=== PATIENT | male | born 1955 | race Caucasian/White ===

== ENCOUNTER 2018-04-22 07:02 | Inpatient (IN) | payer BC ==
--- NOTE | 2018-04-22 07:51 | ED PDOC ---
Arrival/HPI - General Chief Complaint: Fever Time Seen by Provider: 04/22/18 07:20 Historian: Patient - History of Present Illness Narrative History of Present Illness (Text): 04/22/18 07:45 A 63 year old male, with no significant past medical history, presents to the emergency department complaining of fever and chills for 5 days. Patient reports also experiencing rhinorrhea and frequent urination with associated dysuria starting 2 days ago. Patient denies any back pain, sore throat, cough, nausea, vomiting, diarrhea, rash, hematuria, or any other complaints at this time. Also, patient denies any recent sick contacts and denies any history of kidney stones (including in family). No PMD Time/Duration: < week (5 days of fever/chills, 2 days of frequency with dysuria. ) Symptom Onset: Sudden Symptom Course: Unchanged Past Medical History - Provider Review Nursing Documentation Reviewed: Yes - Psychiatric Hx Substance Use: No Family/Social History - Physician Review Nursing Documentation Reviewed: Yes Family/Social History: No Known Family HX Smoking Status: Never Smoked Hx Alcohol Use: No Hx Substance Use: No Allergies/Home Meds Allergies/Adverse Reactions: Allergies No Known Allergies Allergy (Verified 04/22/18 07:19) Home Medications: Home Meds Medication Instructions Recorded Confirmed No Known Home Med 04/22/18 04/22/18 Review of Systems - Physician Review All systems were reviewed & negative as marked: Yes - Review of Systems Constitutional: Fevers ENT: Rhinorrhea. absent: Sore Throat Respiratory: absent: Cough Gastrointestinal: absent: Diarrhea, Nausea, Vomiting Genitourinary Male: Dysuria, Frequency. absent: Hematuria Musculoskeletal: absent: Back Pain Skin: absent: Rash Physical Exam - Physical Exam Narrative Physical Exam (Text): Gen: VS reviewed, alert, well developed, well nourished, nontoxic, mild distress. ENT: normal pharynx. Eye: EOMI, PERRL. Neck: no JVD, supple, no adenopathy. CV: regular rate, regular rhythm, no rubs, no murmur, no gallops, S1, S2, pulses equal and strong. Pulm: no distress, clear to auscultation, no wheeze, no rhonchi, breath sounds equal, no rales. Abd: soft, nontender, no guarding, no rebound, no rigidity, normal bowel sounds. Ext: no edema. Skin: good color, no rash, no cyanosis. Psych: responds appropriately to questions, normal affect. Neuro: oriented x 3, CN2-12 intact grossly, motor intact, sensation intact. Vital Signs Reviewed: Yes Vital Signs Temp Pulse Resp BP Pulse Ox 04/22/18 12:02 99 F 94 H 18 127/73 97 04/22/18 11:46 94 H 18 127/73 04/22/18 11:39 94 H 18 127/73 97 04/22/18 09:22 98 H 17 133/75 96 04/22/18 07:17 99.3 F 98 H 18 121/75 96 Temperature: Afebrile Blood Pressure: Normal Pulse: Regular Respiratory Rate: Normal Appearance: Positive for: Well-Appearing, Non-Toxic, Comfortable Pain Distress: None Mental Status: Positive for: Alert and Oriented X 3 Medical Decision Making ED Course and Treatment: 04/22/18 07:48 Impression: 63 year old male with fever/chills, rhinorrhea, and urinary frequency with associated dysuria. No acute findings on physical examination. Plan: -- Labs -- Urine Culture -- Urinalysis -- Reassess and disposition Progress Notes: 04/22/18 09:[address] Light, hospitalist, who accepts patient under admission. Patient will be admitted for UTI/pyelo. Prior to admission, CT ordered to rule out stone. Patient clinically stable for med surg bed. 04/22/2018 11:17 Abd/Pelvis CT FINDINGS: LOWER THORAX: No infiltrate. Two perifissural nodules 5 mm each adjacent to the minor fissure , possibly intrapulmonary lymph nodes. 5 mm nodule in the right middle lobe. 6 mm nodule in left lower lobe (series 5, image 24). Followup with noncontrast chest CT examination is advised 6-12 months as per Fleischner society criteria. LIVER: Unremarkable. No gross lesion or ductal dilatation. GALLBLADDER AND BILE DUCTS: Unremarkable. PANCREAS: Unremarkable. No gross lesion or ductal dilatation. SPLEEN: Unremarkable. ADRENALS: Unremarkable. No mass. KIDNEYS AND URETERS: Right lower pole renal cortical cyst, 4.1 cm, measuring 4 Hounsfield units. No other mass. No calculus or hydronephrosis. VASCULATURE: Unremarkable. No aortic aneurysm. BOWEL: Sigmoid diverticulosis. No evidence of diverticulitis. No bowel obstruction. APPENDIX: Unremarkable. Normal appendix. PERITONEUM: Right inguinal hernia containing portion of the urinary bladder, extending approximately 50 percent of the length of the right inguinal canal. No herniated bowel. LYMPH NODES: Mild retroperitoneal lymphadenopathy, up to 12 mm short axis. Nonspecific. No pelvic lymphadenopathy. BLADDER: Herniation of bladder into right inguinal canal. REPRODUCTIVE: Normal prostate BONES: No acute fracture. OTHER FINDINGS: None. IMPRESSION: No evidence of urinary calculus or urinary tract obstruction. Herniation of urinary bladder into right inguinal canal. 6 mm nodule in the left lower lobe for which followup noncontrast chest CT examination is advised in 6-12 months. Additional smaller nodules are noted for which no follow-up is required. Nonspecific mild retroperitoneal lymphadenopathy. Additional minor findings as above. Dictator: Michael Bajwa MD - Lab Interpretations Lab Results: 04/22/18 07:50 04/22/18 07:50 Lab Results 04/22/18 09:12: pO2 46, VBG pH 7.39, VBG pCO2 46.0, VBG HCO3 27.8, VBG Total CO2 29.2 H, VBG O2 Sat (Calc) 87.5 H, VBG Base Excess 2.2 H, VBG Potassium 4.1, Glucose 130 H, Lactate 1.3, FiO2 21.0, Sodium 135.0, Chloride 103.0, Venous Blood Potassium 4.1 04/22/18 07:50: Sodium 138, Potassium 4.2, Chloride 102, Carbon Dioxide 28, Anion Gap 12, BUN 21, Creatinine 1.1, Est GFR ( Amer) > 60, Est GFR (Non- Af Amer) > 60, Random Glucose 143 H, Calcium 9.2, Total Bilirubin 3.2 H, AST 26 , ALT 24, Alkaline Phosphatase 73, Total Protein 7.4, Albumin 4.2, Globulin 3.2 , Albumin/Globulin Ratio 1.3 04/22/18 07:50: Urine Color Yellow, Urine Appearance Clear, Urine pH 6.0, Ur Specific Leslie 1.020, Urine Protein Trace H, Urine Glucose (UA) Negative, Urine Ketones 15 H, Urine Blood Trace-intact H, Urine Nitrate Positive H, Urine Bilirubin Negative, Urine Urobilinogen 0.2, Ur Leukocyte Esterase Small H, Urine RBC 5 - 10, Urine WBC 10 - 15, Ur Epithelial Cells 0 - 2, Urine Bacteria Many, Urine Other Uyeast 04/22/18 07:50: WBC 23.5 H, RBC 5.03, Hgb 14.8, Hct 45.4, MCV 90.3, MCH 29.4, MCHC 32.6, RDW 14.2, Plt Count 260, MPV 10.1, Gran % 88.8 H, Lymph % (Auto) 3.1 L, Pennington % (Auto) 8.1 H, Eos % (Auto) 0.0 L, Baso % (Auto) 0.0, Gran # 20.84 H, Lymph # (Auto) 0.7 L, [place] # (Auto) 1.9 H, Eos # (Auto) 0.0, Baso # (Auto) 0.00 , Neutrophils % (Manual) 86 H, Lymphocytes % (Manual) 5 L, Atypical Lymphs % 2 H , Monocytes % (Manual) 7 H, Platelet Evaluation Normal, Anisocytosis (manual) Slight I have reviewed the lab results: Yes - RAD Interpretation Radiology Orders: 04/22/18 08:52 ABDOMEN & PELVIS [ABD & PELVIS W/O PO OR IV CONT] [CT] Stat - Medication Orders Current Medication Orders: Acetaminophen (Tylenol 325mg Tab) 650 mg PO Q6H PRN PRN Reason: Fever >100.4 F Last Admin: 04/22/18 12:42 Dose: 650 mg [facility] Pain/Vitals Document 04/22/18 12:42 ANTOALL (Rec: 04/22/18 12:42 ANTOALL [id number]) Pain Reassessment Is This A Pain ReAssessment? No Sleep Is patient sleeping during reassessment? No Presence of Pain Presence of Pain No Vitals Temperature (97.6 F-99.6 F) 100.4 F Temperature Source Oral Re-Assess: MEG Pain/Vitals Document 04/22/18 13:42 ANTOALL (Rec: 04/22/18 13:47 ANTOALL [id number]) Pain Reassessment Is This A Pain ReAssessment? Yes Sleep Is patient sleeping during reassessment? No Presence of Pain Presence of Pain No Sodium Chloride (Sodium Chloride 0.9%) 1,000 mls @ 150 mls/hr IV .Q6H40M [facility] Last Admin: 04/22/18 09:10 Dose: 150 mls/hr eMAR Start Stop Document 04/22/18 09:10 [facility] (Rec: 04/22/18 09:11 [facility] [facility] [id number] Intravenous Solution Start Date 04/22/18 Start Time 09:11 Ceftriaxone Sodium (Rocephin 1 Gram Ivpb) 1 gm in 100 mls @ 100 mls/hr IVPB DAILY ILIR PRN Reason: Protocol Discontinued Medications Ceftriaxone Sodium (Rocephin 1 Gram Ivpb) 1 gm in 100 mls @ 100 mls/hr IVPB STAT STA PRN Reason: Protocol Stop: 04/22/18 09:50 Last Admin: 04/22/18 09:11 Dose: 100 mls/hr eMAR Start Stop Document 04/22/18 09:11 [facility] (Rec: 04/22/18 09:11 [id number] Intravenous Solution Start Date 04/22/18 Start Time 09:11 End Date 04/22/18 End time 10:13 Total Infusion Time 62 - Scribe Statement The provider has reviewed the documentation as recorded by the Mekhi Little Provider Scribe Attestation: All medical record entries made by the Mekhi were at my direction and personally dictated by me. I have reviewed the chart and agree that the record accurately reflects my personal performance of the history, physical exam, medical decision making, and the department course for this patient. I have also personally directed, reviewed, and agree with the discharge instructions and disposition. Disposition/Present on Arrival - Present on Arrival Any Indicators Present on Arrival: No History of DVT/PE: No History of Uncontrolled Diabetes: No Urinary Catheter: No History of Decub. Ulcer: No History Surgical Site Infection Following: None - Disposition Have Diagnosis and Disposition been Completed?: Yes Diagnosis: Pyelonephritis Disposition: HOSPITALIZED Disposition Time: 17:16 Condition: STABLE
[2018-04-22 08:12] LABS: GRAN # 20.84 (1.4-6.5); GRAN % 88.8 % (50.0-68.0); HEMOGLOBIN 14.8 g/dL (14.0-18.0); LYMPH # 0.7 (1.2-3.4); LYMPH % 3.1 % (22.0-35.0); MEAN CELL VOLUME 90.3 fl (80.0-105.0); MEAN CORPUSCULAR HEMOGLOBIN 29.4 pg (25.0-35.0); MEAN CORPUSCULAR HGB CONC 32.6 g/dl (31.0-37.0); MEAN PLATELET VOLUME 10.1 fl (7.0-11.0); MONO # 1.9 (0.1-0.6); MONO % 8.1 % (1.0-6.0); PLATELET COUNT 260 10^3/uL (120.0-450.0); RBC 5.03 10^6/uL (3.5-6.1); RED CELL DISTRIBUTION WIDTH 14.2 % (11.5-14.5); WHITE BLOOD COUNT 23.5 10^3/ul (4.5-11.0)
[2018-04-22 08:19] LABS: ALB/GLOB RATIO 1.3 (1.1-1.8); ALBUMIN 4.2 g/dL (3.0-4.8); ALT/SGPT 24 U/L (7-56); AST/SGOT 26 U/L (17-59); BLOOD UREA NITROGEN 21 mg/dL (7-21); CALCIUM 9.2 mg/dL (8.4-10.5); GFR NON-AFRICAN AMERICAN > 60
[2018-04-22 08:39] LABS: URINE BILIRUBIN NEGATIVE (NEGATIVE); URINE BLOOD TRACE-INTACT (NEGATIVE); URINE GLUCOSE (UA) NEGATIVE (NEGATIVE); URINE LEUKOCYTE ESTERASE SMALL Leu/uL (NEGATIVE); URINE PROTEIN TRACE mg/dL (<30 mg/dL); URINE UROBILINOGEN 0.2 E.U./dL (<1 E.U./dL)
[2018-04-22 08:43] LABS: URINE APPEARANCE CLEAR (CLEAR); URINE COLOR YELLOW (YELLOW)
[2018-04-22] MEDS ORDERED: cefTRIAXone 1 gm 1 GM/100 ML BAG IVPB STA (08:51)
[2018-04-22] MEDS ORDERED: Sodium Chloride 0.9% 1,000 ML IV SCH (09:00)
[2018-04-22 09:13] LABS: URINE BACTERIA MANY (NEG); URINE EPITHELIAL CELLS 0 - 2 /hpf (0-5)
[2018-04-22 09:22] LABS: VENOUS BLOOD GAS BASE EXCESS 2.2 mmol/L (0.0-2.0); VENOUS BLOOD GAS PO2 46 mm/Hg (30-55); VENOUS BLOOD PH 7.39 (7.32-7.43)
[2018-04-22 09:27] LABS: ATYPICAL LYMPHOCYTE 2 % (0.0-0.0); LYMPHOCYTE 5 % (22.0-35.0); MONOCYTE 7 % (1.0-6.0); NEUTROPHIL 86 % (50.0-70.0); PLATELET ESTIMATE NORMAL (NORMAL)
[2018-04-22 09:28] LABS: ANISOCYTOSIS SLIGHT
--- NOTE | 2018-04-22 11:19 | CT ---
Date of service: 04/22/2018 PROCEDURE: CT Abdomen and Pelvis without intravenous contrast HISTORY: ?stone COMPARISON: None. TECHNIQUE: Without contrast.. Contrast dose: 0 Radiation dose: Total exam DLP = 470.54 mGy-cm. This CT exam was performed using one or more of the following dose reduction techniques: Automated exposure control, adjustment of the mA and/or kV according to patient size, and/or use of iterative reconstruction technique. FINDINGS: LOWER THORAX: No infiltrate. Two perifissural nodules 5 mm each adjacent to the minor fissure, possibly intrapulmonary lymph nodes. 5 mm nodule in the right middle lobe. 6 mm nodule in left lower lobe (series 5, image 24). Followup with noncontrast chest CT examination is advised 6-12 months as per Fleischner society criteria. LIVER: Unremarkable. No gross lesion or ductal dilatation. GALLBLADDER AND BILE DUCTS: Unremarkable. PANCREAS: Unremarkable. No gross lesion or ductal dilatation. SPLEEN: Unremarkable. ADRENALS: Unremarkable. No mass. KIDNEYS AND URETERS: Right lower pole renal cortical cyst, 4.1 cm, measuring 4 Hounsfield units. No other mass. No calculus or hydronephrosis. VASCULATURE: Unremarkable. No aortic aneurysm. BOWEL: Sigmoid diverticulosis. No evidence of diverticulitis. No bowel obstruction. APPENDIX: Unremarkable. Normal appendix. PERITONEUM: Right inguinal hernia containing portion of the urinary bladder, extending approximately 50 percent of the length of the right inguinal canal. No herniated bowel. LYMPH NODES: Mild retroperitoneal lymphadenopathy, up to 12 mm short axis. Nonspecific. No pelvic lymphadenopathy. BLADDER: Herniation of bladder into right inguinal canal REPRODUCTIVE: . normal prostate BONES: No acute fracture. OTHER FINDINGS: None. IMPRESSION: No evidence of urinary calculus or urinary tract obstruction. Herniation of urinary bladder into right inguinal canal. 6 mm nodule in the left lower lobe for which followup noncontrast chest CT examination is advised in 6-12 months. Additional smaller nodules are noted for which no follow-up is required. Nonspecific mild retroperitoneal lymphadenopathy. Additional minor findings as above.
[2018-04-22 11:52] VITALS: BMI 27.1
--- NOTE | 2018-04-22 12:59 | CP.PCM.HP ---
<Williams Burks - Last Filed: 04/22/18 12:53> History of Present Illness - History of Present Illness History of Present Illness: H&P for Hospitalist service - Dean Vitaliy PGY3 cc: dysuria HPI: Patient is a 63yo male with no significant past medical history that presents with c/o fevers for the past 3 days. He reported that he has been having dysuria and increased urinary frequency since Monday associated with fevers and chills that have been only minimally improved with motrin use at home. He reported a similar instance in the past approximately 1 year prior and has had a prior issue with bladder/bowel herniation into the inguinal canal. Has never seen a urologist or surgeon in the past. Denies any pain/radiation. Otherwise, he denies chest pain, palpitations, SOB, abdominal pain, nausea, vomiting, cough, sick contacts, focal weakness, numbness, tingling. 12point ROS as per above otherwise negative PMH: as stated above PSH: denies allergies: NKDA Social Hx: lives with his , works in textile industry, denies tobacco, alcohol and illicit drug use Family Hx: Father with hx of Liver Ca and Mother with hx of breast Ca PMD: Dr. Mino Wright Present on Admission - Present on Admission Any Indicators Present on Admission: No Past Patient History - Past Social History Smoking Status: Never Smoked - CARDIAC Hx Cardiac Disorders: No - PULMONARY Hx Respiratory Disorders: No - NEUROLOGICAL Hx Neurological Disorder: No - HEENT Hx HEENT Problems: No - RENAL Hx Pyelonephritis: Yes () - ENDOCRINE/METABOLIC Hx Endocrine Disorders: No - HEMATOLOGICAL/ONCOLOGICAL Hx Blood Disorders: No - INTEGUMENTARY Hx Dermatological Problems: No - MUSCULOSKELETAL/RHEUMATOLOGICAL Hx Falls: No - GENITOURINARY/GYNECOLOGICAL Hx Genitourinary Disorders: No - PSYCHIATRIC Hx Substance Use: No - SURGICAL HISTORY Hx Surgeries: No Meds Allergies/Adverse Reactions: Allergies Allergy/AdvReac Type Severity Reaction Status Date / Time No Known Allergies Allergy Verified 04/22/18 07:19 Physical Exam - Constitutional Appears: No Acute Distress - Head Exam Head Exam: ATRAUMATIC, NORMAL INSPECTION, NORMOCEPHALIC - Eye Exam Eye Exam: EOMI, PERRL - ENT Exam ENT Exam: Mucous Membranes Moist - Neck Exam Neck exam: Positive for: Normal Inspection. Negative for: Lymphadenopathy, Tenderness, Thyromegaly - Respiratory Exam Respiratory Exam: Clear to Auscultation Bilateral. absent: Rales, Rhonchi, Wheezes - Cardiovascular Exam Cardiovascular Exam: RRR, +S1, +S2. absent: Clicks, Gallop, JVD, Rubs - GI/Abdominal Exam GI & Abdominal Exam: Soft. absent: Distended, Firm, Guarding, Rebound, Tenderness - Exam Exam: NORMAL INSPECTION. absent: Scrotal Swelling, Uretheral Discharge, Bladder Distension External exam: absent: Swelling - Neurological Exam Neurological exam: Alert, CN II-XII Intact, Oriented x3 - Psychiatric Exam Psychiatric exam: Normal Affect, Normal Mood - Skin Skin Exam: Dry, Intact, Normal Color, Warm Results - Vital Signs Recent Vital Signs: Last Vital Signs Temp 100.4 F H 04/22/18 12:42 Pulse 94 H 04/22/18 12:02 Resp 18 04/22/18 12:02 BP 127/73 04/22/18 12:02 Pulse Ox 97 04/22/18 12:02 - Labs Result Diagrams: 04/22/18 07:50 04/22/18 07:50 Assessment & Plan - Assessment and Plan (Free Text) Plan: 63yo male with no significant past medical history presents with fevers/chills/ dysuria secondary to urinary tract infection 1. Urinary tract infection -Significant leukocytosis and urinalysis notable for +nitrates, +LE and many bacteria with 10-15 WBC's -EKG reviewed no acute ST-T wave abnormalities -CXR pending -CT abd/pelvis was reviewed; no apparent stones/hydronephrosis however notable for bladder herniation and incidental lung nodules -Continue with rocephin for abx coverage pending culture/sensitivities -Tylenol PRN for fevers -blood/urine cultures pending -procalcitonin is pending -ID Consulted - Dr. Addison -Urology consulted - Dr. De La Cruz 2. DVT Prophylaxis -SCD's Patient seen and case discussed/reviewed with attending, Dr. Light <Mara Light - Last Filed: 04/22/18 18:18> Results - Vital Signs Recent Vital Signs: Last Vital Signs Temp 100.4 F H 04/22/18 12:42 Pulse 94 H 04/22/18 12:02 Resp 18 04/22/18 12:02 BP 127/73 04/22/18 12:02 Pulse Ox 97 04/22/18 12:02 - Labs Result Diagrams: 04/22/18 07:50 04/22/18 07:50 Attending/Attestation - Attestation I have personally seen and examined this patient.: Yes I have fully participated in the care of the patient.: Yes I have reviewed all pertinent clinical information: Yes Notes (Text): 04/22/18 14:54 attending note; Patient seen and examined with resident in ER. patient's by the bed side. patient is alert and awake. denies any chest pain, shortness of breath. Denies any abdominal pain. Complaining of fevers and chills since Monday. Patient is a 63 year old male with no significant past medical history that presents with c/o fevers for the past 3 days. patient had a history of UTI about a year ago. Patient also complains right inguinal hernia. He is able reduce it most of the time. complicated UTI: started on IV Rocephin. Monitor for fevers and chills. CT abdomen and pelvis showed no apparent stones/hydronephrosis however notable for bladder herniation and incidental lung nodules. case discussed with urologist Dr.yale De La Cruz in detail by ER attending. history of right inguinal hernia; currently no swelling. needs outpatient surgery follow up. Continue IV antibiotics and follow-up culture results. Upon discharge the patient will follow up with PMD . The diagnosis, follow-up plan discussed with patient and patient's in detail.
--- NOTE | 2018-04-22 13:13 | RAD ---
Date of service: 04/22/2018 HISTORY: fever COMPARISON: No prior. FINDINGS: LUNGS: Linear scar/atelectasis at left base. PLEURA: No significant pleural effusion identified, no pneumothorax apparent. CARDIOVASCULAR: Normal. OSSEOUS STRUCTURES: No significant abnormalities. VISUALIZED UPPER ABDOMEN: Normal. OTHER FINDINGS: None. IMPRESSION: Left basilar linear scar/atelectasis. Otherwise unremarkable examination.
--- NOTE | 2018-04-22 13:58 | CARD ---
APPROVED REPORT Date of service: 04/22/2018 EKG Measurement Heart [id number] <Conclusion> Normal sinus rhythm Left axis deviation Abnormal ECG
--- NOTE | 2018-04-22 18:25 | CP.PCM.CON ---
History of Present Illness - History of Present Illness History of Present Illness: CC: FEVER Past Patient History - Past Social History Smoking Status: Never Smoked - CARDIAC Hx Cardiac Disorders: No - PULMONARY Hx Respiratory Disorders: No - NEUROLOGICAL Hx Neurological Disorder: No - HEENT Hx HEENT Problems: No - RENAL Hx Pyelonephritis: Yes () - ENDOCRINE/METABOLIC Hx Endocrine Disorders: No - HEMATOLOGICAL/ONCOLOGICAL Hx Blood Disorders: No - INTEGUMENTARY Hx Dermatological Problems: No - MUSCULOSKELETAL/RHEUMATOLOGICAL Hx Falls: No - GENITOURINARY/GYNECOLOGICAL Hx Genitourinary Disorders: No - PSYCHIATRIC Hx Substance Use: No - SURGICAL HISTORY Hx Surgeries: No Meds Allergies/Adverse Reactions: Allergies Allergy/AdvReac Type Severity Reaction Status Date / Time No Known Allergies Allergy Verified 04/22/18 07:19 - Medications Medications: Current Medications Acetaminophen (Tylenol 325mg Tab) 650 mg PO Q6H PRN PRN Reason: Fever >100.4 F Last Admin: 04/22/18 12:42 Dose: 650 mg Ceftriaxone Sodium (Rocephin 1 Gram Ivpb) 1 gm in 100 mls @ 100 mls/hr IVPB DAILY ILIR PRN Reason: Protocol Sodium Chloride (Sodium Chloride 0.9%) 1,000 mls @ 100 mls/hr IV .Q10H ILIR Ondansetron HCl (Zofran Inj) 4 mg IVP Q4H PRN PRN Reason: Nausea/Vomiting Pantoprazole Sodium (Protonix Inj) 40 mg IVP DAILY ILIR Results - Vital Signs Recent Vital Signs: Last Vital Signs Temp 98.6 F 04/22/18 15:52 Pulse 94 H 04/22/18 15:52 Resp 18 04/22/18 15:52 BP 113/75 04/22/18 15:52 Pulse Ox 99 04/22/18 15:52 - Labs Result Diagrams: 04/22/18 07:50 04/22/18 07:50 Labs: Laboratory Results - last 24 hr 04/22/18 04/22/18 11:00 14:10 Prostate Specific Ag 8.5 H Procalcitonin 0.40 Assessment & Plan - Assessment and Plan (Free Text) Assessment: IMP: UTI BPH HX OF PREVIOUS UTI FULL NOTE TBD YS - Date & Time Date: 04/22/18 Time: 16:05
[2018-04-22] MEDS: Sodium Chloride 0.9% 1,000 ML IV SCH (18:32)
[2018-04-23] MEDS: Sodium Chloride 0.9% 1,000 ML IV SCH ×2 (04:45→15:35)
[2018-04-23 07:02] LABS: BASO # 0.01 K/mm3 (0.0-2.0); BASO % 0.1 % (0.0-3.0); EOS # 0.1 (0.0-0.7); EOS % 0.5 % (1.5-5.0); GRAN # 14.18 (1.4-6.5); GRAN % 85.7 % (50.0-68.0); LYMPH # 1.2 (1.2-3.4); MEAN CELL VOLUME 90.8 fl (80.0-105.0); MEAN CORPUSCULAR HGB CONC 31.9 g/dl (31.0-37.0); MEAN PLATELET VOLUME 9.9 fl (7.0-11.0); MONO # 1.1 (0.1-0.6); MONO % 6.7 % (1.0-6.0); RBC 4.48 10^6/uL (3.5-6.1); RED CELL DISTRIBUTION WIDTH 14.4 % (11.5-14.5); WHITE BLOOD COUNT 16.5 10^3/ul (4.5-11.0)
--- NOTE | 2018-04-23 07:02 | CP.PCM.PN ---
<Bren Sharma - Last Filed: 04/23/18 18:44> Subjective - Date & Time of Evaluation Date of Evaluation: 04/23/18 Time of Evaluation: 07:30 - Subjective Subjective: PGY-1 Bren Sharma D.O. Medicine progress note for Dr. Woodard's service: Patient was seen and examined this morning. No over night events reported. Patient denies fevers or chills. He denies dysuria, hematuria, urinary frequency or hesitancy. He denies abdominal, pelvic, or flank pain. He is eating and sleeping well. Objective - Vital Signs/Intake and Output Vital Signs (last 24 hours): Temp Pulse Resp BP Pulse Ox 98.3 F 77 16 112/74 97 04/23/18 02:07 04/22/18 21:23 04/22/18 21:23 04/22/18 21:23 04/22/18 21:23 Intake and Output: 04/23/18 04/23/18 06:59 18:59 Intake Total 480 Balance 480 - Medications Medications: Current Medications Acetaminophen (Tylenol 325mg Tab) 650 mg PO Q6H PRN PRN Reason: Fever >100.4 F Last Admin: 04/22/18 12:42 Dose: 650 mg Ceftriaxone Sodium (Rocephin 1 Gram Ivpb) 1 gm in 100 mls @ 100 mls/hr IVPB DAILY [facility] PRN Reason: Protocol Sodium Chloride (Sodium Chloride 0.9%) 1,000 mls @ 100 mls/hr IV .Q10H ILIR Last Admin: 04/23/18 04:45 Dose: 100 mls/hr Ondansetron HCl (Zofran Inj) 4 mg IVP Q4H PRN PRN Reason: Nausea/Vomiting Pantoprazole Sodium (Protonix Inj) 40 mg IVP DAILY [facility] Tamsulosin HCl (Flomax) 0.4 mg PO DAILY [facility] - Constitutional Appears: Non-toxic, No Acute Distress - Head Exam Head Exam: ATRAUMATIC, NORMAL INSPECTION - Eye Exam Eye Exam: EOMI, Normal appearance - ENT Exam ENT Exam: Mucous Membranes Moist, Normal Exam - Neck Exam Neck Exam: Normal Inspection - Respiratory Exam Respiratory Exam: Clear to Ausculation Bilateral, NORMAL BREATHING PATTERN - Cardiovascular Exam Cardiovascular Exam: REGULAR RHYTHM, +S1, +S2 - GI/Abdominal Exam GI & Abdominal Exam: Soft, Normal Bowel Sounds. absent: Tenderness - Rectal Exam Rectal Exam: Deferred - Extremities Exam Extremities Exam: Full ROM, Normal Inspection. absent: Pedal Edema - Back Exam Back Exam: NORMAL INSPECTION. absent: CVA tenderness (L), CVA tenderness (R) - Neurological Exam Neurological Exam: Alert, Awake, CN II-XII Intact, Oriented x3 Neuro motor strength exam: Left Upper Extremity: 5, Right Upper Extremity: 5, Left Lower Extremity: 5, Right Lower Extremity: 5 - Psychiatric Exam Psychiatric exam: Normal Affect, Normal Mood - Skin Skin Exam: Dry, Intact, Normal Color, Warm Assessment and Plan - Assessment and Plan (Free Text) Assessment: 63 yo male with no significant past medical history presents with fevers/chills/dysuria secondary to urinary tract infection. Treating with IV abx. Leukocytosis improving. Plan: Urinary tract infection - Tmax 100.4 04/22 - Leukocytosis downtrending - CT A/P: no apparent stones/hydronephrosis; however notable for bladder herniation and incidental lung nodules - UA: +nitrates, +LE and many bacteria with 10-15 WBC's - Blood Cx no growh >24 hrs - Urine Cx GNR - Lactate 1.3 - Procalcitonin 0.4 - PSA 8.5 - Flomax 0.4 mg PO daily - Rocephin 1 g IV daily (started 04/22) - Tylenol 650 mg PO Q6H PRN for fevers - ID consulted (Cyn) - Urology consulted (Michael De La Cruz) Pulmonary nodules- incidentally found on CT - Will need repeat CT as outpatient in 6 months IVF: NS @ 100 Diet: heart healthy GI ppx: protonix 40 mg PO daily VTE ppx: SCD Code status: full code Case discussed with attending, Dr. Woodard. <Maria Isabel Woodard R - Last Filed: 04/24/18 17:06> Objective - Vital Signs/Intake and Output Vital Signs (last 24 hours): Temp Pulse Resp BP Pulse Ox 98.7 F 68 20 112/76 98 04/24/18 06:00 04/24/18 06:00 04/24/18 06:00 04/24/18 06:00 04/24/18 06:00 Intake and Output: 04/24/18 04/24/18 06:59 18:59 Intake Total 600 120 Balance 600 120 - Medications Medications: Current Medications Acetaminophen (Tylenol 325mg Tab) 650 mg PO Q6H PRN PRN Reason: Fever >100.4 F Last Admin: 04/22/18 12:42 Dose: 650 mg Ceftriaxone Sodium (Rocephin 1 Gram Ivpb) 1 gm in 100 mls @ 100 mls/hr IVPB DAILY [facility]; Protocol Last Admin: 04/24/18 13:51 Dose: 100 mls/hr Sodium Chloride (Sodium Chloride 0.9%) 1,000 mls @ 100 mls/hr IV .Q10H ILIR Last Admin: 04/23/18 15:35 Dose: 100 mls/hr Ondansetron HCl (Zofran Inj) 4 mg IVP Q4H PRN PRN Reason: Nausea/Vomiting Pantoprazole Sodium (Protonix Ec Tab) 40 mg PO ACB ILIR Last Admin: 04/24/18 13:51 Dose: 40 mg Tamsulosin HCl (Flomax) 0.4 mg PO DAILY [facility] Last Admin: 04/24/18 13:51 Dose: 0.4 mg - Labs Labs: 04/24/18 06:20 04/24/18 06:20 Attending/Attestation - Attestation I have personally seen and examined this patient.: Yes I have fully participated in the care of the patient.: Yes I have reviewed all pertinent clinical information, including history, physical exam and plan: Yes Notes (Text): Patient seen and examined by me at 12:10 PM with resident 04/23/18. Case including HPI, physical exam, and assessment and plan discussed with resident. Agree with above with following additions/corrections. Patient is a 63-year-old male with no significant past medical history that presented to the emergency room with fever and dysuria. Patient states he is feeling pretty good. He denies any dysuria or burning with urination. Patient denies any urinary frequency. No chest pain or shortness of breath. No headaches or dizziness. No fevers or chills. No diarrhea or constipation. No nausea, vomiting, or abdominal pain. Physical exam: General: Awake and alert lying in bed in no acute distress HEENT: Normocephalic atraumatic. Pupils equal reactive. No scleral icterus. Oropharynx is pink and moist. Neck is supple. Cardiovascular: Normal rhythm. Normal S1, S2. No murmurs, rubs, or gallops appreciated Pulmonary: Normal respiratory effort. No rhonchi, rales or wheezing appreciated. Gastrointestinal: Soft, nondistended. Nontender. Positive bowel sounds all 4 quadrants, no guarding. Musculoskeletal: Moves all extremities, no calf tenderness, no edema appreciated. Central nervous system: AAO 3 Dermatologic: Skin warm and dry. Assessment and plan: Patient is a 63-year-old male with no significant past medical history that presented to the emergency room with fever and dysuria. 1. UTI. Bloood cultures with no growth to date. Urine culture positive for gram negative rods, pending final results. CT abd/pelvis per radiologist showed no evidence of urinary calculus or urinary tract obstruction, herniation of urinary bladder and right inguinal canal, 6 mm nodule in the left lower lobe for which follow-up noncontrast CT chest examination is advised in 6 months, additional smaller nodules are noted for which no follow-up is required, nonspecific mild retroperitoneal lymphadenopathy. ID following, recommendations appreciated. Neurology following, recommendations appreciated. Continue Rocephin. Patient febrile yesterday. Patient is afebrile today. 2. Leukocytosis. Secondary to #1. Downtrending. Continue to monitor. 3. BPH. PSA elevated. Urology following. Continue Flomax. 4. Lung nodule. Incidental finding on CT abdomen and pelvis. Discussed with patient. He should advised to have follow-up chest CT in 6-12 months. 5. GI and DVT prophylaxis. Protonix and SCDs with early ambulation. 6. Patient is a full code. Case was discussed in detail with the patient regarding current diagnosis and treatment plan. All questions were answered.
[2018-04-23 07:19] LABS: ALB/GLOB RATIO 1.1 (1.1-1.8); ALBUMIN 3.3 g/dL (3.0-4.8); ALT/SGPT 22 U/L (7-56); AST/SGOT 20 U/L (17-59); BLOOD UREA NITROGEN 17 mg/dL (7-21); CALCIUM 8.5 mg/dL (8.4-10.5); GFR NON-AFRICAN AMERICAN > 60
--- NOTE | 2018-04-23 09:46 | CON ---
DATE: 04/22/2018 CHIEF COMPLAINT: Burning upon urination and fevers and chills times 5 days duration. HISTORY OF PRESENT ILLNESS: This is a 63-year-old [place] male with no significant past medical history who is admitted through the emergency room with complains of fevers and chills and dysuria, and frequency for several days. This gotten worse in the last 2 days. REVIEW OF SYSTEMS: Twelve-point review of systems is performed. There is no headaches, no blurred vision or cough, shortness of breath. No abdominal pain, diarrhea or constipation. No rash and no joint pain. PAST MEDICAL HISTORY: Noncontributory. PAST SURGICAL HISTORY: Noncontributory. ALLERGIES: THE PATIENT HAS NO KNOWN ALLERGIES. MEDICATIONS AT HOME: He states that he takes no medications at home. PHYSICAL EXAMINATION: GENERAL: The patient is in bed, no acute distress. VITAL SIGNS: Temperature of 100.4, heart rate of 94, respiratory rate of 18, blood pressure is 127/73. HEENT: Unremarkable. NECK: Supple. LUNGS: Have decreased breath sounds. HEART: Normal S1, S2. ABDOMEN: Soft, nontender. No organomegaly. No rebound or guarding or masses. LABORATORY EXAMINATIONS: Reveals a white count of 23,000 with a hemoglobin of 14, platelets of 260, 88% granulocytosis and blood gases are known. Chemistries reveals a BUN of 21, creatinine of 1.1, glucose is 143, bilirubin is 3.2. LFTs are normal and alk phos is normal. Urinalysis significant for 10-15 WBCs, many bacteria. There is leukocyte esterase, positive nitrates. There is proteinuria. The patient had a CAT scan of the abdomen and pelvis, which reveals no evidence of urinary stones and nodules are noted. There is nonspecific retroperitoneal lymphadenopathy. Chest x-ray was done which is negative. ASSESSMENT AND PLAN: This is a 63-year-old male with no significant past medical history, admitted with a temperature of 100.4, [place] [address], positive urinalysis with number #1 is sepsis with the urine as a source, wants to rule out underlying prostate disease. We will check on the blood cultures, urine cultures and the patient started on ceftriaxone by and was given a dose of ceftriaxone. We will order a PSA. Because of his age, we will order an HIV fourth generation. We will make further recommendations pending Urology evaluation and initial workup results. Last travel to [place] was in January. We will follow with you. Micheal Addison MD
[2018-04-23] MEDS: cefTRIAXone 1 gm 1 GM/100 ML BAG IVPB SCH (10:50)
[2018-04-23 10:51] VITALS: RESP 20
--- NOTE | 2018-04-23 21:04 | CP.PCM.PN ---
Subjective - Date & Time of Evaluation Date of Evaluation: 04/23/18 Time of Evaluation: 13:20 - Subjective Subjective: No fevers, not in distress, improved urination, no nausea, no more fevers. Objective - Vital Signs/Intake and Output Vital Signs (last 24 hours): Temp Pulse Resp BP Pulse Ox 97.9 F 80 20 122/77 97 04/23/18 14:00 04/23/18 14:00 04/23/18 14:00 04/23/18 14:00 04/23/18 14:00 Intake and Output: 04/23/18 04/24/18 18:59 06:59 Intake Total 600 Balance 600 - Medications Medications: Current Medications Acetaminophen (Tylenol 325mg Tab) 650 mg PO Q6H PRN PRN Reason: Fever >100.4 F Last Admin: 04/22/18 12:42 Dose: 650 mg Ceftriaxone Sodium (Rocephin 1 Gram Ivpb) 1 gm in 100 mls @ 100 mls/hr IVPB DAILY [facility] PRN Reason: Protocol Last Admin: 04/23/18 10:50 Dose: 100 mls/hr Sodium Chloride (Sodium Chloride 0.9%) 1,000 mls @ 100 mls/hr IV .Q10H ILIR Last Admin: 04/23/18 15:35 Dose: 100 mls/hr Ondansetron HCl (Zofran Inj) 4 mg IVP Q4H PRN PRN Reason: Nausea/Vomiting Pantoprazole Sodium (Protonix Ec Tab) 40 mg PO ACB ILIR Tamsulosin HCl (Flomax) 0.4 mg PO DAILY [facility] Last Admin: 04/23/18 10:50 Dose: 0.4 mg - Labs Labs: 04/23/18 06:30 04/23/18 06:30 - Constitutional Appears: Non-toxic, No Acute Distress - Head Exam Head Exam: NORMAL INSPECTION - Neck Exam Neck Exam: absent: Meningismus - Respiratory Exam Respiratory Exam: Decreased Breath Sounds - Cardiovascular Exam Cardiovascular Exam: +S1, +S2 - GI/Abdominal Exam GI & Abdominal Exam: Soft. absent: Tenderness Assessment and Plan - Assessment and Plan (Free Text) Plan: Assessment sepsis due to gram negative bacilli UTI, probable BPH Plan continue Rocephin day 2 pending identification and sensitivities of the gram negative bacilli in the urine will monitor clinically
[2018-04-24 07:00] LABS: EOS # 0.2 (0.0-0.7); EOS % 1.7 % (1.5-5.0); GRAN # 6.98 (1.4-6.5); GRAN % 80.1 % (50.0-68.0); LYMPH # 0.8 (1.2-3.4); LYMPH % 9.6 % (22.0-35.0); MEAN CELL VOLUME 89.5 fl (80.0-105.0); MEAN CORPUSCULAR HEMOGLOBIN 28.6 pg (25.0-35.0); MEAN CORPUSCULAR HGB CONC 31.9 g/dl (31.0-37.0); MONO # 0.8 (0.1-0.6); MONO % 8.6 % (1.0-6.0); RBC 4.2 10^6/uL (3.5-6.1); WHITE BLOOD COUNT 8.7 10^3/ul (4.5-11.0)
[2018-04-24 07:21] LABS: ALB/GLOB RATIO 1.2 (1.1-1.8); ALBUMIN 3.1 g/dL (3.0-4.8); ALT/SGPT 20 U/L (7-56); AST/SGOT 21 U/L (17-59); BLOOD UREA NITROGEN 15 mg/dL (7-21); CALCIUM 8.4 mg/dL (8.4-10.5); GFR NON-AFRICAN AMERICAN > 60
[2018-04-24] MEDS ORDERED: Pantoprazole 40 mg EC Tab PO SCH (07:30)
[2018-04-24 07:56] VITALS: BP 112/76; PULSE 68; TEMP 98.7; O2SAT 98
[2018-04-24] MEDS: cefTRIAXone 1 gm 1 GM/100 ML BAG IVPB SCH (13:51)
--- NOTE | 2018-04-24 17:24 | CP.PCM.DIS ---
Provider - Provider Date of Admission: 04/22/18 09:25 Attending physician: Maria Isabel Woodard DO Primary care physician: Dr. Wright Consults: ID urology Time Spent in preparation of Discharge (in minutes): 45 Diagnosis - Discharge Diagnosis (1) UTI (urinary tract infection) Status: Acute Priority: High (2) Lung nodules Status: Chronic Priority: Medium Hospital Course - Lab Results Lab Results: Micro Results 04/22/18 07:50 Urine,Clean Catch Urine Culture - Final Escherichia Coli 04/22/18 09:20 Blood-Venous Blood Culture - Preliminary NO GROWTH AFTER 48 HOURS 04/22/18 09:12 Blood-Venous Blood Culture - Preliminary NO GROWTH AFTER 48 HOURS Most Recent Lab Values WBC 8.7 10^3/ul (4.5-11.0) D 04/24/18 06:20 RBC 4.20 10^6/uL (3.5-6.1) 04/24/18 06:20 Hgb 12.0 g/dL (14.0-18.0) L 04/24/18 06:20 Hct 37.6 % (42.0-52.0) L 04/24/18 06:20 MCV 89.5 fl (80.0-105.0) 04/24/18 06:20 MCH 28.6 pg (25.0-35.0) 04/24/18 06:20 MCHC 31.9 g/dl (31.0-37.0) 04/24/18 06:20 RDW 14.0 % (11.5-14.5) 04/24/18 06:20 Plt Count 291 10^3/uL (120.0-450.0) 04/24/18 06:20 MPV 10.0 fl (7.0-11.0) 04/24/18 06:20 Gran % 80.1 % (50.0-68.0) H 04/24/18 06:20 Lymph % (Auto) 9.6 % (22.0-35.0) L 04/24/18 06:20 [place] % (Auto) 8.6 % (1.0-6.0) H 04/24/18 06:20 Eos % (Auto) 1.7 % (1.5-5.0) 04/24/18 06:20 Baso % (Auto) 0.0 % (0.0-3.0) 04/24/18 06:20 Gran # 6.98 (1.4-6.5) H 04/24/18 06:20 Lymph # (Auto) 0.8 (1.2-3.4) L 04/24/18 06:20 [place] # (Auto) 0.8 (0.1-0.6) H 04/24/18 06:20 Eos # (Auto) 0.2 (0.0-0.7) 04/24/18 06:20 Baso # (Auto) 0.00 K/mm3 (0.0-2.0) 04/24/18 06:20 Neutrophils % (Manual) 86 % (50.0-70.0) H 04/22/18 07:50 Lymphocytes % (Manual) 5 % (22.0-35.0) L 04/22/18 07:50 Atypical Lymphs % 2 % (0.0-0.0) H 04/22/18 07:50 Monocytes % (Manual) 7 % (1.0-6.0) H 04/22/18 07:50 Platelet Evaluation Normal (NORMAL) 04/22/18 07:50 Anisocytosis (manual) Slight 04/22/18 07:50 pO2 46 mm/Hg (30-55) 04/22/18 09:12 VBG pH 7.39 (7.32-7.43) 04/22/18 09:12 VBG pCO2 46.0 (40-60) 04/22/18 09:12 VBG HCO3 27.8 mmol/l (21-28) 04/22/18 09:12 VBG Total CO2 29.2 mmol.L (22-28) H 04/22/18 09:12 VBG O2 Sat (Calc) 87.5 % (40-65) H 04/22/18 09:12 VBG Base Excess 2.2 mmol/L (0.0-2.0) H 04/22/18 09:12 VBG Potassium 4.1 mmol/L (3.6-5.2) 04/22/18 09:12 Sodium 135.0 mmol/L (132-148) 04/22/18 09:12 Chloride 103.0 mmol/L (98-107) 04/22/18 09:12 Glucose 130 mg/dl (75-110) H 04/22/18 09:12 Lactate 1.3 mmol/L (0.7-2.1) 04/22/18 09:12 FiO2 21.0 % 04/22/18 09:12 Sodium 138 mmol/L (132-148) 04/24/18 06:20 Potassium 4.2 mmol/L (3.6-5.0) 04/24/18 06:20 Chloride 107 mmol/L (98-107) 04/24/18 06:20 Carbon Dioxide 27 mmol/L (21-33) 04/24/18 06:20 Anion Gap 9 (10-20) L 04/24/18 06:20 BUN 15 mg/dL (7-21) 04/24/18 06:20 Creatinine 0.9 mg/dl (0.8-1.5) 04/24/18 06:20 Est GFR ( Amer) > 60 04/24/18 06:20 Est GFR (Non-Af Amer) > 60 04/24/18 06:20 Random Glucose 122 mg/dL (70-110) H 04/24/18 06:20 Calcium 8.4 mg/dL (8.4-10.5) 04/24/18 06:20 Phosphorus 2.8 mg/dL (2.5-4.5) 04/24/18 06:20 Magnesium 1.9 mg/dL (1.7-2.2) 04/24/18 06:20 Total Bilirubin 0.5 mg/dL (0.2-1.3) 04/24/18 06:20 AST 21 U/L (17-59) 04/24/18 06:20 ALT 20 U/L (7-56) 04/24/18 06:20 Alkaline Phosphatase 61 U/L (38-126) 04/24/18 06:20 Total Protein 5.7 g/dL (5.8-8.3) L 04/24/18 06:20 Albumin 3.1 g/dL (3.0-4.8) 04/24/18 06:20 Globulin 2.6 gm/dL 04/24/18 06:20 Albumin/Globulin Ratio 1.2 (1.1-1.8) 04/24/18 06:20 Prostate Specific Ag 8.5 ng/mL (0.00-2.5) H 04/22/18 14:10 Procalcitonin 0.40 NG/ML (0.19-0.49) 04/22/18 11:00 Venous Blood Potassium 4.1 mmol/L (3.6-5.2) 04/22/18 09:12 Urine Color Yellow (YELLOW) 04/22/18 07:50 Urine Appearance Clear (CLEAR) 04/22/18 07:50 Urine pH 6.0 (4.7-8.0) 04/22/18 07:50 Ur Specific [place] 1.020 (1.005-1.035) 04/22/18 07:50 Urine Protein Trace mg/dL (<30 mg/dL) H 04/22/18 07:50 Urine Glucose (UA) Negative mg/dL (NEGATIVE) 04/22/18 07:50 Urine Ketones 15 mg/dL (NEGATIVE) H 04/22/18 07:50 Urine Blood Trace-intact (NEGATIVE) H 04/22/18 07:50 Urine Nitrate Positive (NEGATIVE) H 04/22/18 07:50 Urine Bilirubin Negative (NEGATIVE) 04/22/18 07:50 Urine Urobilinogen 0.2 E.U./dL (<1 E.U./dL) 04/22/18 07:50 Ur Leukocyte Esterase Small Donis/uL (NEGATIVE) H 04/22/18 07:50 Urine RBC 5 - 10 /hpf (0-2) 04/22/18 07:50 Urine WBC 10 - 15 /hpf (0-6) 04/22/18 07:50 Ur Epithelial Cells 0 - 2 /hpf (0-5) 04/22/18 07:50 Urine Bacteria Many (NEG) 04/22/18 07:50 Urine Other Uyeast 04/22/18 07:50 HIV 1&2 Ag/Ab, 4th Gen Nonreactive (Nonreactive) 04/22/18 18:02 - Hospital Course Hospital Course: Patient is a 63yo male with no significant past medical history that presents with c/o fevers for the past 3 days. He reported that he has been having dysuria and increased urinary frequency since Monday associated with fevers and chills that have been only minimally improved with motrin use at home. He reported a similar instance in the past approximately 1 year prior and has had a prior issue with bladder/bowel herniation into the inguinal canal. Has never seen a urologist or surgeon in the past. During admission, patient had a Tmax of 100.4 on 04/22 at noon and was afebrile thereafter. He also had leukocytosis that downtrended throughout the course of his admission. He was treated with IV abx (Rocephin). Urine culture grew E. Coli sensitive to multiple abx. Blood cultures remained negative >48hrs. Lung nodules were incidentally found on CT of abd/pelvis. Patient will follow this up as an outpatient. Upon discharge, patient was afebrile and vitals were stable. His leukocytosis resolved. He denied urinary symptoms, including dysuria, hematuria, and urinary frequency and hesitancy. Patient was ambulating independently. He will take oral cipro following discharge. Discharge Exam - Head Exam Head Exam: NORMAL INSPECTION - Eye Exam Eye Exam: EOMI, Normal appearance - ENT Exam ENT Exam: Mucous Membranes Moist, Normal Exam - Neck Exam Neck exam: Full Rom, Normal Inspection - Respiratory Exam Respiratory Exam: Clear to PA & Lateral, NORMAL BREATHING PATTERN, UNREMARKABLE - Cardiovascular Exam Cardiovascular Exam: REGULAR RHYTHM, +S1, +S2 - GI/Abdominal Exam GI & Abdominal Exam: Normal Bowel Sounds, Soft, Unremarkable - Rectal Exam Rectal Exam: Deferred - Extremities Exam Extremities exam: normal inspection, pedal pulses present - Back Exam Back exam: NORMAL INSPECTION - Neurological Exam Neurological exam: Alert, CN II-XII Intact, Normal Gait, Oriented x3, Reflexes Normal - Psychiatric Exam Psychiatric exam: Normal Affect, Normal Mood - Skin Skin Exam: Dry, Intact, Normal Color, Warm Discharge Plan - Discharge Medications Prescriptions: Ciprofloxacin [Cipro] 500 mg PO BID 7 Days tab Tamsulosin [Flomax] 0.4 mg PO DAILY #14 cap - Follow Up Plan Condition: IMPROVED Disposition: HOME/ ROUTINE Patient education suggested?: Yes Instructions: Urinary Tract Infections in Adults, Heart Healthy Diet, Acute Pain, Adult (DC), Pneumococcal Polysaccharide Vaccine (23-Valent) Additional Instructions: You are being discharged from [facility] after being treated for a urinary tract infection. Please follow-up with your primary care provider, Dr. Wright, within 3-5 days of discharge. Please follow up with urologist Dr. De La Cruz within one week of discharge. You will be given a prescription for cipro (antibiotic) twice daily for 7 days. Please take until all pills are completed. You will also be given a prescription for Flomax 0.4 mg- one pill daily. If symptoms return, present to the nearest emergency room. Referrals: Marci De La Cruz MD [Staff Provider] -
--- NOTE | 2018-04-24 19:32 | CP.PCM.PN ---
Subjective - Date & Time of Evaluation Date of Evaluation: 04/24/18 Time of Evaluation: 11:10 - Subjective Subjective: Comfortable, no nausea, no fevers. Objective - Vital Signs/Intake and Output Vital Signs (last 24 hours): Temp Pulse Resp BP Pulse Ox 98.7 F 68 20 112/76 98 04/24/18 06:00 04/24/18 06:00 04/24/18 06:00 04/24/18 06:00 04/24/18 06:00 Intake and Output: 04/24/18 04/25/18 18:59 06:59 Intake Total 120 Balance 120 - Labs Labs: 04/24/18 06:20 04/24/18 06:20 - Constitutional Appears: Chronically Ill - Head Exam Head Exam: NORMAL INSPECTION - Respiratory Exam Respiratory Exam: Decreased Breath Sounds - Cardiovascular Exam Cardiovascular Exam: +S1, +S2 - GI/Abdominal Exam GI & Abdominal Exam: Soft. absent: Tenderness Assessment and Plan - Assessment and Plan (Free Text) Plan: Assessment sepsis due to E. coli UTI, probable BPH Plan on Rocephin day 3 - since QTc is normal, can be switched to PO Ciprofloxacin to complete total 10-14 days of therapy (Day 3 today)
[2018-04-24 22:15] LABS: TOTAL PSA 15.3 ng/mL (< or = 4.0)
--- NOTE | 2018-04-25 07:37 | CON ---
DATE: 04/22/2018 UROLOGY CONSULTATION Urology consultation is requested by Dr. Mara Light. Urology consultation is filled by Dr. Marci De La Cruz. REASON FOR CONSULTATION: Urinary tract infection. HISTORY OF PRESENT ILLNESS: The patient is a 63-year-old male admitted with dysuria. The patient is in otherwise good health. The patient presents with fever. He had lower abdominal pain. No flank pain. The patient reports that he had a history of urinary tract infection once in the past approximately two years ago. The patient reports no history of urolithiasis. The patient reports that he voids with good urinary stream and good control. Nocturia x1. There is no history of diabetes or hypertension. The patient lives with his . He does not smoke. The patient has two children and two grandchildren. 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 No hematuria. The patient has fair urinary stream. The patient reports that he has rigors as well. PHYSICAL EXAMINATION: GENERAL: The patient is a well-developed, well-nourished male, appearing his stated age. The patient is awake and alert. ABDOMEN: Soft, nontender, nondistended. No mass or organomegaly. BACK: No CVA tenderness. GENITALIA: Normal male. Scrotal contents without inflammation. RECTAL: Normal sphincter tone. No mass or organomegaly. Prostate is enlarged. Prostate is approximately 30-40 g in size. Prostate is smooth and firm and symmetric without fixation, induration or nodularity. LABORATORY DATA: See attached lab reports. The patient had a CT scan performed. The CT scan revealed a right lower pole renal cyst, 4 cm in size. A right inguinal hernia was noted with urinary bladder within the right inguinal hernia. There was no evidence of hydronephrosis. No evidence of urolithiasis. IMPRESSION: Urinary tract infection. Benign prostatic hypertrophy. Right inguinal hernia. RECOMMENDATION AND PLAN: As described antibiotic therapy, urine culture. Serum PSA. Monitor clinical course. Please also note the abnormal findings on the CT scan, namely a 6 mm nodule reported in the left lower lobe. Followup is advised regarding the lung nodule. Thank you for recommending the patient for Urology consultation. Further therapy to follow according to the patient's clinical course as well as results of above. [place] MD Dorothy cc: Zoe Harding MD
== END 2018-04-24 18:17 | disposition home or self-care (01) | DRG 690 ==
LOC: ED 07:02 → ERH 09:25 → 5RNO 12:04
PROVIDERS: ADMIT Internal Medicine; ATTEND Hospitalist
DX: N39.0 Urinary tract infection, site not specified (principal); N40.0 Benign prostatic hyperplasia without lower urinary tract symptoms; R91.1 Solitary pulmonary nodule; Z80.3 Family history of malignant neoplasm of breast; Z80.0 Family history of malignant neoplasm of digestive organs